=== PATIENT | female | born 1940 | race Caucasian/White ===

== ENCOUNTER 2018-08-04 09:00 | Inpatient (IN) | payer MEDICARE ==
[~2018-08-04] VITALS: Ht 158.8 cm; Wt 51.4 kg
[2018-08-04 12:30] VITALS: BP 119/60
[2018-08-04 12:37] LABS: BASOPHILS % (AUTO) 1.2 % (0.0-5.0); EOSINOPHILS % (AUTO) 3.9 % (0.0-8.0); LYMPHOCYTES % (AUTO) 18.6 % (21.0-51.0); MEAN CORPUSCULAR HGB CONC 31.9 g/dL (32.0-36.0); MEAN CORPUSCULAR VOLUME 87.8 fL (79-99); MONOCYTES % (AUTO) 15.6 % (3.0-13.0); NEUTROPHILS % (AUTO) 60.7 % (40.0-77.0); PLATELET COUNT (AUTO) 288 K/uL (130-400); RED BLOOD CELL COUNT(AUTO) 4.22 MIL/uL (4.00-5.50); RED CELL DISTRIBUTION WIDTH 17.1 % (11.0-15.5)
[2018-08-04 12:52] LABS: ALBUMIN 3.5 g/dL (3.5-5.0); BILIRUBIN,TOTAL 0.3 mg/dL (0.2-1.0); PARTIAL THROMBOPLASTIN TIME 27.9 SEC (26.3-35.5); POTASSIUM 4.9 mmol/L (3.5-5.1); PROTHROMBIN TIME 10.5 SEC (9.6-11.6); TOTAL PROTEIN, SERUM 7.4 g/dL (6.0-8.3)
[2018-08-04 13:07] LABS: HEMOGLOBIN A1C 5.7 % (4.0-6.0)
[2018-08-05] MEDS ORDERED: CARV3.12 PO (11:31)
[2018-08-05] MEDS ORDERED: AEC81 PO (11:31)
[2018-08-05] MEDS ORDERED: venlafaxine PO (11:31)
[2018-08-05] MEDS ORDERED: MEMA1CAP3 PO (11:31)
[2018-08-05] MEDS ORDERED: ATOR40TA71 PO (11:31)
[2018-08-05] MEDS ORDERED: FURO20TA4 PO (11:31)
[2018-08-05] MEDS ORDERED: LISI2.5T2 PO (11:31)
[2018-08-06] VITALS (28 sets, daily range): BP systolic 96–172; BP diastolic 45–74
[2018-08-06] MEDS: CEFUROXIME SODIUM 1.5 GM VIAL IVP SCH ×2 (06:00→14:15)
[2018-08-06] MEDS ORDERED: SODIUM CHLORIDE 0.9% 1000ML 1,000 ML IV ONE (06:26)
[2018-08-06] MEDS ORDERED: DELNIDO FORMULA 1 BAG IV ONE (07:45)
[2018-08-06] MEDS ORDERED: EPINEPHRINE 1 MG/ML 30ML VIAL IJ ONE (08:20)
[2018-08-06] MEDS ORDERED: HEPARIN SODIUM 1000UNIT/ML 10ML VIAL IV ONE (12:00)
[2018-08-06] MEDS ORDERED: AMINOCAPROIC ACID 250 MG/ML 20 ML VIAL IV ONE ×2 (12:00→13:44)
[2018-08-06] MEDS ORDERED: ALBUMIN (HUMAN) 25% 50 ML IV ONE (12:00)
[2018-08-06] MEDS ORDERED: MANNITOL 25% 50ML VIAL IV ONE (12:00)
[2018-08-06] MEDS ORDERED: PHENYLEPHRINE HCL 10 MG/ML 1ML VIAL IV ONE (12:00)
[2018-08-06] MEDS ORDERED: SODIUM BICARB 8.4% 50ML SYRINGE IVP ONE (12:00)
[2018-08-06] MEDS ORDERED: EPINEPHRINE 1 MG/ML AMPULE ONE (13:44)
[2018-08-06] MEDS ORDERED: PROTAMINE SULFATE 10 MG/ML 25ML VIAL IV ONE (13:44)
[2018-08-06] MEDS ORDERED: NOREPINEPHRINE BITARTRATE 1 MG/1 ML ML IV ONE (13:44)
[2018-08-06] MEDS ORDERED: PROPOFOL 10 MG/ML 20ML VIAL IV ONE (13:44)
[2018-08-06] MEDS ORDERED: ESMOLOL HCL 10 MG/ML 10 ML VIAL ONE (13:44)
[2018-08-06] MEDS ORDERED: LIDOCAINE PF 2% 5ML ABBOJECT ONE ×2 (13:44→13:49)
[2018-08-06] MEDS ORDERED: HEPARIN SODIUM 1000UNIT/ML 10ML VIAL ONE (13:44)
[2018-08-06] MEDS ORDERED: FENTANYL CITRATE PF 50 MCG/1 ML 20ML VIAL IJ ONE ×3 (13:44→16:05)
[2018-08-06] MEDS ORDERED: MIDAZOLAM HCL 1 MG/ML 5ML VIAL ONE (13:45)
[2018-08-06] MEDS ORDERED: AMIODARONE HCL 50 MG/ML 3 ML VIAL ONE (13:48)
[2018-08-06] MEDS ORDERED: VASOPRESSIN 20 UNITS/ML 1ML VIAL ONE (13:49)
[2018-08-06] MEDS ORDERED: ROCURONIUM 10MG/1ML SYR 10 MG/ML ML ONE (13:51)
[2018-08-06 15:23] LABS: ABG HCO3 21.8 mmol/L (21.0-28.0); ABG OXYGEN SATURATION 99.1 % (95.0-99.0); ABG PCO2 27 mmHg (32-45)
[2018-08-06] MEDS ORDERED: BACITRACIN 50,000 UNIT VIAL ONE (15:49)
[2018-08-06 15:50] LABS: ABG BASE EXCESS -2.9 mmol/L (-2.0-3.0); ABG HCO3 19.9 mmol/L (21.0-28.0); ABG OXYGEN SATURATION 98.8 % (95.0-99.0); ABG PCO2 27 mmHg (32-45)
[2018-08-06] MEDS ORDERED: NOREPINEPHRINE 4MG/NS 250ML 250 ML IV PRN (16:15)
[2018-08-06] MEDS ORDERED: EPINEPHRINE 8 MG in SODIUM CHLORIDE 0.9% 250 ML IV PRN (16:15)
[2018-08-06] MEDS ORDERED: SODIUM CHLORIDE 0.9% 250 ML IV PRN (16:15)
[2018-08-06] MEDS ORDERED: MAGNESIUM 2GM PREMIX 50ML 50 ML IV PRN (16:15)
[2018-08-06] MEDS ORDERED: NITROGLYCERIN 50 MG/D5% WATER 250 BOT IV SCH (16:15)
[2018-08-06] MEDS ORDERED: GLUCAGON 1MG KIT 1 MG ML IM PRN (16:15)
[2018-08-06] MEDS ORDERED: INSULIN REGULAR, HUMAN 3ML 100 UNIT in SODIUM CHLORIDE 0.9% 99 ML IV SCH ×2 (16:15)
[2018-08-06] MEDS ORDERED: ALBUMIN (HUMAN) 5% 250 ML IV PRN (16:15)
[2018-08-06] MEDS ORDERED: PROPOFOL 1000 MG/100 ML 100 ML IV PRN (16:15)
[2018-08-06] MEDS ORDERED: ONDANSETRON HCL 4 MG/2 ML VIAL IV PRN (16:15)
[2018-08-06] MEDS ORDERED: POTASSIUM PHOS 15 mMOL+NS250ML 250 ML IV PRN (16:15)
[2018-08-06] MEDS ORDERED: SODIUM CHLORIDE 0.9% 10 ML VIAL IVP PRN (16:15)
[2018-08-06] MEDS ORDERED: SODIUM CHLORIDE 0.9% 1000ML 1,000 ML IV SCH (16:15)
[2018-08-06] MEDS ORDERED: TRAMADOL HCL 50 MG TABLET PO PRN (16:15)
[2018-08-06] MEDS ORDERED: MORPHINE SULFATE 2 MG/ML 1ML SYG IV PRN (16:15)
[2018-08-06] MEDS ORDERED: MORPHINE SULFATE 4 MG/1ML SYG IV PRN (16:15)
[2018-08-06] MEDS ORDERED: AMINOCAPROIC ACID 15,000 MG in SODIUM CHLORIDE 0.9% 250 ML IV SCH (16:15)
[2018-08-06] MEDS ORDERED: DEXTROSE 50%-WATER 50 ML DISP.SYRIN IV PRN (16:15)
[2018-08-06] MEDS ORDERED: CALCIUM GLUCONATE 1 GM in SODIUM CHLORIDE 0.9% 50 ML IV PRN (16:15)
[2018-08-06] MEDS ORDERED: ACETAMINOPHEN 650 MG SUPPOSITORY RC PRN (16:15)
[2018-08-06 16:31] LABS: ABG BASE EXCESS -1.5 mmol/L (-2.0-3.0); ABG HCO3 22.2 mmol/L (21.0-28.0); ABG OXYGEN SATURATION 98.5 % (95.0-99.0); ABG PCO2 33 mmHg (32-45)
[2018-08-06 16:46] LABS: ABG BASE EXCESS 0.2 mmol/L (-2.0-3.0); ABG HCO3 23.7 mmol/L (21.0-28.0); ABG PCO2 33 mmHg (32-45)
[2018-08-06] MEDS: Q-PUMP 1 EACH MISC SCH ×2 (17:32→17:58)
[2018-08-06 17:51] LABS: ABG BASE EXCESS -1.7 mmol/L (-2.0-3.0); ABG HCO3 22.2 mmol/L (21.0-28.0); ABG OXYGEN SATURATION 99.3 % (95.0-99.0); ABG PCO2 35 mmHg (32-45)
[2018-08-06] MEDS: SODIUM BICARB 50MEQ 50ML VIAL IV PRN ×2 (17:58→19:27)
[2018-08-06] MEDS: POTASSIUM CHLORIDE 20MEQ/100ML 100 ML IV PRN ×2 (17:58→19:07)
[2018-08-06 18:15] LABS: HEMATOCRIT 37.1 % (36-48); MEAN CORPUSCULAR HGB CONC 32.2 g/dL (32.0-36.0); MEAN CORPUSCULAR VOLUME 87.1 fL (79-99); PLATELET COUNT (AUTO) 143 K/uL (130-400); RED BLOOD CELL COUNT(AUTO) 4.25 MIL/uL (4.00-5.50); RED CELL DISTRIBUTION WIDTH 15.9 % (11.0-15.5)
[2018-08-06 18:27] LABS: CREATININE 0.7 mg/dL (0.5-1.5); MAGNESIUM 2.5 mg/dL (1.80-2.40); PHOSPHORUS 3.7 mg/dL (2.5-4.9); POTASSIUM 3.6 mmol/L (3.5-5.1)
[2018-08-06 19:23] LABS: ABG HCO3 24.6 mmol/L (21.0-28.0); ABG OXYGEN SATURATION 98.1 % (95.0-99.0); ABG PCO2 60 mmHg (32-45)
[2018-08-06] MEDS ORDERED: ALBUMIN (HUMAN) 5% 250 ML IV ONE (20:31)
[2018-08-06 20:33] LABS: ABG BASE EXCESS 3.2 mmol/L (-2.0-3.0); ABG HCO3 26.2 mmol/L (21.0-28.0); ABG PCO2 35 mmHg (32-45)
[2018-08-06] MEDS: ACETAMINOPHEN 325 MG TAB PO PRN (20:34)
[2018-08-06] MEDS: SODIUM CHLORIDE 0.9% 500ML 500 ML IV SCH (20:55)
[2018-08-06] MEDS: ATORVASTATIN CALCIUM 40 MG TABLET PO SCH (21:00)
[2018-08-06 22:08] LABS: ABG BASE EXCESS 5.2 mmol/L (-2.0-3.0); ABG HCO3 27.4 mmol/L (21.0-28.0); ABG OXYGEN SATURATION 99.3 % (95.0-99.0); ABG PCO2 33 mmHg (32-45)
[2018-08-07] VITALS (45 sets, daily range): BP systolic 94–176; BP diastolic 40–78
[2018-08-07 00:30] LABS: ABG BASE EXCESS 0.9 mmol/L (-2.0-3.0); ABG HCO3 23.1 mmol/L (21.0-28.0); ABG OXYGEN SATURATION 99.1 % (95.0-99.0); ABG PCO2 31 mmHg (32-45)
[2018-08-07 01:04] LABS: MAGNESIUM 2.3 mg/dL (1.80-2.40); POTASSIUM 3.9 mmol/L (3.5-5.1)
[2018-08-07] MEDS: ACETAMINOPHEN 325 MG TAB PO PRN (01:39)
[2018-08-07] MEDS: CEFUROXIME SODIUM 1.5 GM VIAL IVP SCH ×2 (02:05→13:47)
[2018-08-07] MEDS: POTASSIUM CHLORIDE 20MEQ/100ML 100 ML IV PRN (02:18)
[2018-08-07 04:54] LABS: HEMATOCRIT 35.4 % (36-48); MEAN CORPUSCULAR HEMOGLOBIN 28.6 pg (27.0-33.0); MEAN CORPUSCULAR HGB CONC 33.3 g/dL (32.0-36.0); MEAN CORPUSCULAR VOLUME 85.8 fL (79-99); PLATELET COUNT (AUTO) 154 K/uL (130-400); RED BLOOD CELL COUNT(AUTO) 4.13 MIL/uL (4.00-5.50); RED CELL DISTRIBUTION WIDTH 16.2 % (11.0-15.5); WHITE BLOOD COUNT (AUTO) 16.5 K/uL (4.8-10.8)
[2018-08-07 05:04] LABS: CREATININE 1.2 mg/dL (0.5-1.5); MAGNESIUM 2.2 mg/dL (1.80-2.40); PHOSPHORUS 3.2 mg/dL (2.5-4.9); POTASSIUM 4.3 mmol/L (3.5-5.1)
[2018-08-07 05:07] LABS: INR 1.1 (0.85-1.15); PARTIAL THROMBOPLASTIN TIME 28.2 SEC (26.3-35.5); PROTHROMBIN TIME 11.5 SEC (9.6-11.6)
[2018-08-07] MEDS: SODIUM CHLORIDE 0.9% 500ML 500 ML IV SCH (06:04)
[2018-08-07] MEDS ORDERED: PANTOPRAZOLE SODIUM 40 MG TABLET.DR PO SCH (09:00)
[2018-08-07] MEDS ORDERED: ASPIRIN 81 MG EC TAB PO SCH (09:00)
[2018-08-07] MEDS: ASPIRIN 81MG TAB.CHEW PO SCH (09:08)
[2018-08-07] MEDS: FUROSEMIDE 10 MG/ML 2ML VIAL IV SCH ×2 (09:08→20:56)
[2018-08-07] MEDS: FAMOTIDINE 20MG TAB 20 MG TAB PO SCH ×2 (09:08→21:00)
[2018-08-07] MEDS: ATORVASTATIN CALCIUM 40 MG TABLET PO SCH (21:00)
[2018-08-08] VITALS (19 sets, daily range): BP systolic 113–167; BP diastolic 61–90
[2018-08-08] MEDS ORDERED: CEFUROXIME SODIUM 1.5 GM VIAL ONE (03:35)
[2018-08-08] MEDS: CEFUROXIME SODIUM 1.5 GM VIAL IVP SCH (03:37)
[2018-08-08 04:21] LABS: HEMATOCRIT 30.8 % (36-48); MEAN CORPUSCULAR HEMOGLOBIN 27.8 pg (27.0-33.0); MEAN CORPUSCULAR HGB CONC 31.9 g/dL (32.0-36.0); MEAN CORPUSCULAR VOLUME 87.1 fL (79-99); RED BLOOD CELL COUNT(AUTO) 3.54 MIL/uL (4.00-5.50); RED CELL DISTRIBUTION WIDTH 16.4 % (11.0-15.5)
[2018-08-08 04:27] LABS: CREATININE 1.5 mg/dL (0.5-1.5); MAGNESIUM 2.3 mg/dL (1.80-2.40)
[2018-08-08 04:44] LABS: PLATELET COUNT (AUTO) 144 K/uL (130-400)
[2018-08-08] MEDS: ACETAMINOPHEN 325 MG TAB PO PRN (05:54)
[2018-08-08] MEDS: FAMOTIDINE 20MG TAB 20 MG TAB PO SCH ×2 (08:09→19:49)
[2018-08-08] MEDS: CARVEDILOL 3.125 MG TABLET PO SCH ×2 (08:09→19:48)
[2018-08-08] MEDS: ASPIRIN 81MG TAB.CHEW PO SCH (08:09)
[2018-08-08] MEDS: FUROSEMIDE 10 MG/ML 2ML VIAL IV SCH (08:10)
[2018-08-08 16:43] LABS: ABG BASE EXCESS -2.1 mmol/L (-2.0-3.0); ABG HCO3 23.8 mmol/L (21.0-28.0); ABG OXYGEN SATURATION 98.2 % (95.0-99.0); ABG PCO2 45 mmHg (32-45)
[2018-08-08 16:43] LABS: ABG BASE EXCESS -0.7 mmol/L (-2.0-3.0); ABG HCO3 24.8 mmol/L (21.0-28.0); ABG OXYGEN SATURATION 98.7 % (95.0-99.0); ABG PCO2 44 mmHg (32-45)
[2018-08-08 16:44] LABS: ABG BASE EXCESS -2.7 mmol/L (-2.0-3.0); ABG HCO3 23.4 mmol/L (21.0-28.0); ABG OXYGEN SATURATION 97.9 % (95.0-99.0); ABG PCO2 46 mmHg (32-45)
[2018-08-08 16:44] LABS: ABG BASE EXCESS 2.2 mmol/L (-2.0-3.0); ABG OXYGEN SATURATION 99.1 % (95.0-99.0); ABG PCO2 34 mmHg (32-45)
[2018-08-08 16:44] LABS: ABG HCO3 26.2 mmol/L (21.0-28.0); ABG OXYGEN SATURATION 97.8 % (95.0-99.0); ABG PCO2 48 mmHg (32-45)
[2018-08-08] MEDS: ATORVASTATIN CALCIUM 40 MG TABLET PO SCH (19:48)
[2018-08-08] MEDS: DONEPEZIL HCL PO SCH (19:49)
[2018-08-08] MEDS: MEMANTINE HCL PO SCH (19:49)
[2018-08-09] MEDS: TRAMADOL HCL 50 MG TABLET PO PRN ×2 (00:32→10:05)
[2018-08-09 03:55] VITALS: BP 145/67
[2018-08-09 04:20] LABS: POTASSIUM 3.3 mmol/L (3.5-5.1)
[2018-08-09 07:00] VITALS: BP 130/77
[2018-08-09] MEDS ORDERED: LIDOCAINE HCL-MPF 1% 2ML VIAL IVP PRN (07:45)
[2018-08-09] MEDS ORDERED: POTASSIUM CHLORIDE 10% ELIXIR 20 MEQ/15 ML UDCUP PO PRN (07:45)
[2018-08-09] MEDS: ENOXAPARIN SODIUM 40 MG/0.4 ML SYRINGE SQ SCH (08:03)
[2018-08-09] MEDS: ASPIRIN 81MG TAB.CHEW PO SCH (08:03)
[2018-08-09] MEDS: CARVEDILOL 3.125 MG TABLET PO SCH ×2 (08:04→20:34)
[2018-08-09] MEDS: FUROSEMIDE 20 MG TABLET PO SCH ×2 (08:04→17:25)
[2018-08-09] MEDS: POTASSIUM CHLORIDE 20 MEQ ERTAB PO PRN ×3 (08:04→12:32)
[2018-08-09] MEDS: FAMOTIDINE 20MG TAB 20 MG TAB PO SCH ×2 (08:04→20:34)
[2018-08-09] MEDS ORDERED: FUROSEMIDE 20 MG TABLET PO SCH (09:00)
[2018-08-09 11:00] VITALS: BP 133/81
[2018-08-09 16:00] VITALS: BP 158/80
[2018-08-09 19:22] VITALS: BP 145/78
[2018-08-09] MEDS: ATORVASTATIN CALCIUM 40 MG TABLET PO SCH (20:34)
[2018-08-09] MEDS: DONEPEZIL HCL PO SCH (20:34)
[2018-08-09] MEDS: MEMANTINE HCL PO SCH (20:34)
[2018-08-09 23:54] VITALS: BP 126/60
[2018-08-10 03:42] VITALS: BP 136/71
[2018-08-10 03:44] LABS: BASOPHILS % (AUTO) 0.2 % (0.0-5.0); EOSINOPHILS % (AUTO) 2.4 % (0.0-8.0); HEMATOCRIT 27.6 % (36-48); LYMPHOCYTES % (AUTO) 15.4 % (21.0-51.0); MEAN CORPUSCULAR HEMOGLOBIN 28.6 pg (27.0-33.0); MEAN CORPUSCULAR HGB CONC 33.1 g/dL (32.0-36.0); MEAN CORPUSCULAR VOLUME 86.3 fL (79-99); MONOCYTES % (AUTO) 8.1 % (3.0-13.0); NEUTROPHILS % (AUTO) 73.9 % (40.0-77.0); PLATELET COUNT (AUTO) 101 K/uL (130-400); WHITE BLOOD COUNT (AUTO) 9.8 K/uL (4.8-10.8)
[2018-08-10 03:59] LABS: MAGNESIUM 1.8 mg/dL (1.80-2.40); POTASSIUM 3.1 mmol/L (3.5-5.1)
[2018-08-10] MEDS: POTASSIUM CHLORIDE 20 MEQ ERTAB PO PRN ×2 (05:07→07:56)
[2018-08-10 07:00] VITALS: BP 145/75
[2018-08-10] MEDS: CARVEDILOL 3.125 MG TABLET PO SCH (07:55)
[2018-08-10] MEDS: ASPIRIN 81MG TAB.CHEW PO SCH (07:55)
[2018-08-10] MEDS: FAMOTIDINE 20MG TAB 20 MG TAB PO SCH (07:55)
[2018-08-10] MEDS: FUROSEMIDE 20 MG TABLET PO SCH (07:55)
[2018-08-10] MEDS: ENOXAPARIN SODIUM 40 MG/0.4 ML SYRINGE SQ SCH (07:55)
[2018-08-10 11:57] VITALS: BP 129/73
[2018-08-10 16:00] VITALS: BP 151/79
[2018-08-11] MEDS ORDERED: ENOXAPARIN SODIUM 30 MG/0.3 ML SQ SCH (09:00)
== END 2018-08-10 16:45 | DRG 220 ==
LOC: EDSTATUS 08-05 12:00 → DAHIP 08-06 05:53 → 2CV 08-06 17:22 → 2CH 08-08 05:37 → 4CH 08-10 08:31
PROVIDERS: ADMIT Thoracic Surgery (Cardiothoracic Vascular Surgery); ATTEND Thoracic Surgery (Cardiothoracic Vascular Surgery)
PROC: 3E080GC Introduction of Other Therapeutic Substance into Heart, Open Approach (ICD-10-PCS; 2018-08-06)
PROC: 30233N1 Transfusion of Nonautologous Red Blood Cells into Peripheral Vein, Percutaneous Approach (ICD-10-PCS; 2018-08-06)
PROC: 02RF08Z Replacement of Aortic Valve with Zooplastic Tissue, Open Approach (ICD-10-PCS; principal; 2018-08-06 13:57)
PROC: 5A1221Z Performance of Cardiac Output, Continuous (ICD-10-PCS; 2018-08-06 13:57)
DX: I35.0 Nonrheumatic aortic (valve) stenosis (principal); J93.9 Pneumothorax, unspecified; T79.7XXA Traumatic subcutaneous emphysema, initial encounter; I25.10 Atherosclerotic heart disease of native coronary artery without angina pectoris; E78.5 Hyperlipidemia, unspecified; F03.90 Unspecified dementia, unspecified severity, without behavioral disturbance, psychotic disturbance, mood disturbance, and anxiety; I11.0 Hypertensive heart disease with heart failure; I50.9 Heart failure, unspecified; Z79.82 Long term (current) use of aspirin; Z95.5 Presence of coronary angioplasty implant and graft; Z90.710 Acquired absence of both cervix and uterus; Z82.49 Family history of ischemic heart disease and other diseases of the circulatory system
CPT/HCPCS: 36415; 71045; 71046; 76998; 80048; 80053; 80061; 82435; 82803; 82947; 82948; 83036; 83605; 83735; 84100; 84132; 84295; 85018; 85025; 85027; 85347; 85610; 85730; 86850; 86900; 86901; 86922; 88305; 88311; 93005; 93318; 94002; 97039; A4218; A4344; A7048; J0171; J0282; J0697; J1644; J1650; J1815; J1940; J2001; J2150; J2250; J2370; J2704; J2720; J3010; J3480; J3490; J7030; J7040; P9016; P9045; P9047

== ENCOUNTER 2020-10-30 01:38 | Emergency (ER) | payer MEDICARE ==
[~2020-10-30 01:38] MED LIST: AEC81 PO; ATOR40TA71 PO; CARV3.12 PO; FURO20TA4 PO; LISI2.5T2 PO; MEMA1CAP3 PO; venlafaxine PO
== END 2020-10-30 06:08 | disposition home or self-care (01) ==
LOC: EDH 01:38
DX: S09.90XA Unspecified injury of head, initial encounter (principal); F03.90 Unspecified dementia, unspecified severity, without behavioral disturbance, psychotic disturbance, mood disturbance, and anxiety; Z91.041 Radiographic dye allergy status; Z88.8 Allergy status to other drugs, medicaments and biological substances; W18.09XA Striking against other object with subsequent fall, initial encounter; Y93.89 Activity, other specified; Y92.89 Other specified places as the place of occurrence of the external cause; Y99.8 Other external cause status
CPT/HCPCS: 70450; 72125